=== PATIENT | female | born 1960 | race Caucasian/White ===

== ENCOUNTER → 2016-07-27 | Outpatient (CLI) | payer OTHER ==
--- NOTE | ~2016-07-27 | CR58 ---
[facility] A Service [facility] RADIOLOGY TEXT RESULTS PATIENT: BRETT WALKER LOCATION: [facility] : 58 UNIT #: [id number] AGE: [address]: Radha Johns MD SEX: F ORDER DR: [id number] [address] [address] [id number] O MR#: [id number] Acc #: [id number] NAME: BRETT WALKER : 1960 SEX: F STUDY DATE/TIME: 07/27/2016 15:02 UNIT: [facility] ROOM: STUDY DESCRIPTION: CR Cervical Spine 2 or 3 Views Attending Physician: Radha Johns M.D. Referring Physician: Radha Johns M.D. Ordering Physician: Radha Johns M.D. Primary Care Physician: Radha Johns M.D. MEDICAL IMAGING REPORT This report is preliminary unless electronic signature is present. EXAM Cervical spine series. HISTORY Headaches, neck and left arm pain over the past week. TECHNIQUE 3 views of the cervical spine were obtained. FINDINGS Alignment is satisfactory. Lower C7 and upper T1 are not seen in the lateral projection. There is advanced degenerative disc disease at C4-5 and C5-6 with mild degenerative changes at the upper cervical discs and at C6-7. Posterior facets are intact. No fractures or destructive bone lesions are seen. IMPRESSION Advanced degenerative disc disease C4-5 and C5-6 with lesser degenerative changes at the other cervical levels. No acute bony abnormalities are seen. Dictated by... Bobby Barnes M.D. THIS IS AN ELECTRONICALLY VERIFIED REPORT Bobby Barnes M.D. at 07/27/2016 10:22 PM LUCRETIA/isra TD: 07/27/2016 19:42 JOB #: [id number] [facility] A Service [facility] RADIOLOGY TEXT RESULTS PATIENT: BRETT WALKER LOCATION: [facility] : 58 UNIT #: [id number] AGE: [address]: Radha Johns MD SEX: F ORDER DR: MEDICAL IMAGING REPORT Page 1 of 1
== END | disposition home or self-care (01) ==
LOC: SRAD 14:34
DX: M54.12 Radiculopathy, cervical region (principal); M54.2 Cervicalgia; R51 Headache; M50.321 Other cervical disc degeneration at C4-C5 level; M50.322 Other cervical disc degeneration at C5-C6 level; M47.812 Spondylosis without myelopathy or radiculopathy, cervical region
CPT/HCPCS: 72040

== ENCOUNTER → 2016-07-27 | Outpatient (CLI) | payer OTHER ==
[2016-07-27 15:12] LABS: BASOPHIL# 0.1 X10e3 (0-0.3); BASOPHIL% 0.9 % (0-2.5); EOSINOPHIL# 0.3 X10e3 (0-0.7); EOSINOPHIL% 3.9 % (0.0-7.0); HEMATOCRIT 39.9 % (35.0-45.0); HEMOGLOBIN 13.2 gm/dL (12.0-16.0); LYMPHOCYTE# 2.5 X10e3 (1.0-3.5); LYMPHOCYTE% 36.5 % (17.0-45.0); MEAN CELL VOLUME 91.7 FL (83-96); MEAN CORPUSCULAR HEMOGLOBIN 30.4 PG (28-34); MEAN CORPUSCULAR HGB CONC 33.1 g/dL (30-36); MEAN PLATELET VOLUME 8.3 FL (6.5-11.5); MONOCYTE# 0.4 X10e3 (0-1.0); MONOCYTE% 6.1 % (3.0-12.0); NEUTROPHIL# 3.6 X10e3 (1.5-7.1); NEUTROPHIL% 52.6 % (40-75); PLATELET COUNT 306 X10e3 (140-420); RED BLOOD COUNT 4.35 X10e (3.90-5.30); WHITE BLOOD COUNT 6.8 X10e3 (4.0-10.5)
[2016-07-27 15:14] LABS: DIFF IND NO
[2016-07-27 15:23] LABS: INR 0.9; PROTHROMBIN TIME (PATIENT) 10.6 SECONDS (9.5-12.4)
[2016-07-27 15:31] LABS: ALBUMIN SERUM 4.2 g/dL (3.5-5.0); BILIRUBIN,TOTAL 0.1 mg/dL (0.2-2.0); BUN/CREATININE RATIO 13.33; CALCIUM SERUM 8.7 mg/dL (8.4-10.2); CREATININE SERUM 0.6 mg/dL (0.6-1.4); GLOM FILT RATE Estimated 101.2 mL/min (>60); POTASSIUM 3.7 mmol/L (3.5-5.1); PROTEIN TOTAL SERUM 7.4 g/dL (6.0-8.3)
[2016-07-31 02:54] LABS: ANA SCREEN Negative (Negative); HEP B SURFACE AG Nonreactive (Nonreactive); HEPATITIS A ANTIBODY Reactive (Nonreactive); HEPATITIS B SURFACE ANTIBODY <5 mIU/mL (>=10)
== END | disposition home or self-care (01) ==
LOC: SLAB 14:31
PROVIDERS: Internal Medicine Gastroenterology
DX: K74.60 Unspecified cirrhosis of liver (principal); R74.8 Abnormal levels of other serum enzymes
CPT/HCPCS: 36415; 80053; 82103; 82390; 82728; 83516; 83520; 83540; 83550; 85025; 85610; 86038; 86039; 86704; 86706; 86708; 87340; 87522